=== PATIENT | male | born 1940 ===

== ENCOUNTER 2023-12-27 14:43 | Outpatient (CLI) | payer MEDICARE, SELFPAY ==
--- NOTE | ~2023-12-27 | XR_ITS ---
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 Osteopenia. Mild thoracolumbar levoscoliosis. Normal alignment of the lumbar spine. No fracture or bone destruction or spondylolisthesis of the lumbar spine is evident. The included low er thoracic and lumbar pedicles appear intact. The sacral iliac joints are intact. IMPRESSION: Osteopenia Diffuse advanced until hyperostosis of the thoracolumbar spine No fracture or bone destruction or spondylolisthesis is detected Reviewed, dictated and finalized at location A.
== END 2023-12-27 14:44 ==
PROVIDERS: PCP Internal Medicine; Visit Provider Internal Medicine
DX: M54.50 Low back pain, unspecified (principal); M85.88 Other specified disorders of bone density and structure, other site
CPT/HCPCS: 72100

== ENCOUNTER 2024-03-26 11:15 | Outpatient (RCR) | payer MEDICARE, SELFPAY ==
--- NOTE | 2024-01-14 09:54 | OPREHPOC ---
Outpatient Therapy Plan of Care This is a Multidisciplinary Plan of Care that may contain components documented by all disciplines (PT, OT, and ST.) PT Problem 1 PT Problem #1 Knowledge Deficit PT Goal 1 Goal *indep with HEP Target Visit 8 PT Problem 2 PT Problem #2 Pain PT Goal 1 Goal 1* pain rating at the worst of 7/10 2* self assessment Oswestry rating of 32% limitation 3* pt report awaken from sleep due to back pain 2x /night Target Visit 8 PT Problem 3 PT Problem #3 Impaired Flexibility PT Goal 1 Goal increase flexibility of hips to decrease muscle tightness: supine hamstring length with SLR: 1* R 55' 2* L 55' side lying hip extension 3* R 5' 4* L 5' supine hip flexion without pain increase 5* R 6* L Target Visit 8 PT Problem 4 PT Problem #4 Impaired Strength PT Goal 1 Goal increase hip and trunk strength to improve stability to spine and increase mobility 1* side lying hip abduction R x 20 reps 2* side lying hip abduction L x 20 reps 3* 2 minute walking test distance of 450' Target Visit 8
--- NOTE | 2024-01-14 09:54 | PTOPEVAL1 ---
Assessment and note entered by Adriana Warner, PT Evaluation Information Assessment Status Evaluation Diagnosis low back pain Onset November 2023 Subjective Information gradual increase in pain in back; more active lately--had trees fall on his home and he had to move out and have repair work done, just finished and now getting moved back into his home; lumbar x ray: diffuse hyperostosis of thoracic- lumbar spine, osteopenia; Activity: no assistive device, indep with home and self care; does yard work; does not do any exercises for fitness Reported Pain Level Pain Score Self Report Additional Pain Score Comments pain range in the past week: 3-10/10; R and L lumbar--sharp pains at waist level increase pain: when first wake up in AM, more activity decrease pain: tylenol, sit/rest with sleeping, awaken due to back pain 3-4x/night tried heat/ice- help a little Assessment PT Clinical Summary Abel has the diagnosis of back pain. He reports pain disrupting his sleeping and decreasing his activity level. Self assessment Oswestry rating of 46% limitation in activity. X ray report states diffuse hyperostosis of thoracic- lumbar spine and osteopenia. With the evaluation: pain is increased with standing trunk flexion and supine hip flexion & IR motions; tightness over R and L hamstrings, piriformis and anterior hip/quad muscles with weakness of trunk and hips; 2 minute walking test distance of 400' with pain increase to 7/10; Skilled PT services are indicated for modalities to decrease pain and tightness; therapeutic exercises to increase flexibility and strength of trunk and hips, with education for HEP and pain management. Plan of Care Interventions Electrical Stimulation,Hot Pack/Cold Pack,Manual Therapy,Neuro Re-education,Therapeutic Activities, Therapeutic Exercise,Ultrasound,Other,pt education Other Interventions IASTM, taping PT Services Indicated Yes Treatment Frequency an
--- NOTE | 2024-01-22 08:57 | PCPTNOTE ---
Pt canceled due to illness.
--- NOTE | 2024-01-24 09:39 | PCPTNOTE ---
pt called and canceled today's treatment appt.
--- NOTE | 2024-02-12 11:53 | PCPTNOTE ---
pt did not show for today's appt. Called him and he did not have it on his calendar. Offered and he took a treatment time for tomorrow.
--- NOTE | 2024-02-17 17:07 | PTOPPROG ---
Assessment and note entered by Erica Blakely, PT Re-Eval Information Assessment Status Progress Diagnosis low back pain Onset November 2023 Subjective Information Pt reports sleeping longer, pain is reduced but not completely gone. Feels therapy has definitely helped him feel better. Assessment PT Clinical Summary Pt demos good progress with therapy, showed gains in strength and flexibility of lumbar spine and BLEs. However, he still continue to experience pain and discomfort with certain movements. Continued Skilled PT necessary to further improve hip mobility to address continued limitation and reduce risk for falls at this time, as well as improve independent carryover and compliance of HEPs and proper body mechanics. Plan of Care Interventions Gait Training,Hot Pack/Cold Pack,Manual Therapy, Mechanical Traction,Neuro Re-education,Patient/ Caregiver Education,Therapeutic Activities, Therapeutic Exercise,Ultrasound Other Interventions IASTM, Taping, Dry Needling PT Services Indicated Yes Treatment Frequency and 2x/wk x 10 visits Duration These treatments will address the objective and functional deficits as defined above. The patient will be advanced safely and appropriately in order for the patient to progress towards his/her prior level of function. Additional exercises will be introduced and as well as a comprehensive home exercise program upon discharge, if needed, ?to ensure carryover of functional gains achieved in the clinic. This treatment plan has been reviewed and agreement upon by the patient.
--- NOTE | 2024-02-17 17:27 | PTOPPROG ---
Assessment and note entered by Erica Blakely, PT Evaluation Information Assessment Status Progress Diagnosis low back pain Onset November 2023 Subjective Information Pt reports sleeping longer, pain is reduced but not completely gone. Feels therapy has definitely helped him feel better. Assessment PT Clinical Summary Pt demos good progress with therapy, showed gains in strength and flexibility of lumbar spine and BLEs. However, he still continue to experience pain and discomfort with certain movements. Continued Skilled PT necessary to further improve hip mobility to address continued limitation and reduce risk for falls at this time, as well as improve independent carryover and compliance of HEPs and proper body mechanics. Plan of Care Interventions Gait Training,Hot Pack/Cold Pack,Manual Therapy, Mechanical Traction,Neuro Re-education,Patient/ Caregiver Education,Therapeutic Activities, Therapeutic Exercise,Ultrasound Other Interventions IASTM, Taping, Dry Needling PT Services Indicated Yes Treatment Frequency and 2x/wk x 6 visits Duration These treatments will address the objective and functional deficits as defined above. The patient will be advanced safely and appropriately in order for the patient to progress towards his/her prior level of function. Additional exercises will be introduced and as well as a comprehensive home exercise program upon discharge, if needed, ?to ensure carryover of functional gains achieved in the clinic. This treatment plan has been reviewed and agreement upon by the patient.
--- NOTE | 2024-03-24 11:45 | PCPTNOTE ---
Pt canecled stating he could not make it today.
--- NOTE | 2024-03-26 15:28 | PTOPDC ---
Assessment and note entered by Adriana Warner, PT Discharge Report Assessment Status Discharge Diagnosis low back pain Onset November 2023 Subjective Information he is doing better and want to be finished with therapy--make today his last day of therapy; Reported Pain Level Pain Score 0: Self Report Pain Score 0: Self Report Additional Pain Score Comments has not been having any back pain; is sleeping OK and no problems; Assessment PT Clinical Summary Ad has received 14 PT sessions. He did not show for 1 and called/canceled 3 appointments. The goals were achieved: pain rating 0/10; no issues with sleeping; increase LE strength and gait skills. Education completed for HEP and body mechanics. Discharge PT. He is to continue with his HEP and monitor posture. Plan of Care PT Services Indicated No
== END 2024-03-31 13:59 | disposition home or self-care (01) ==
LOC: ANHPT 11:15
PROVIDERS: PCP Internal Medicine; Visit Provider Internal Medicine
DX: M54.50 Low back pain, unspecified (principal)
CPT/HCPCS: 97014; 97110; 97112; 97140; 97161; 97530; 97750; G0283